=== PATIENT | male | born 1960 | race Caucasian/White ===

== ENCOUNTER → 2019-12-19 16:35 | Outpatient (CLI) | payer OTHER, SELFPAY ==
--- NOTE | ~2019-12-19 | XR_ITS ---
EXAMINATION: XR shoulder LT min 2V DATE: 12/19/2019 16:56 INDICATION: Left shoulder pain TECHNIQUE: AP internally and externally rotated, AP oblique externally rotated and axillary views of the left shoulder were obtained. COMPARISON: None FINDINGS: Normal alignment. No fracture. Glenohumeral joint is normal. Chondrocalcinosis and mild osteoarthrit is at the acromioclavicular joint. Subtle amorphous calcification along the greater tuberosity sugges tive of rotator cuff calcific tendinitis. Visualized portions of the lungs are clear. IMPRESSION: 1. Chondrocalcinosis and mild osteoarthritis at the left acromioclavicular joint. 2. Rotator cuff calcific tendinitis. Reviewed, dictated and finalized at location A. IMPRESSION: 1. Chondrocalcinosis and mild osteoarthritis at the left acromioclavicular join t. 2. Rotator cuff calcific tendinitis.
== END ==
PROVIDERS: PCP Family Medicine; Visit Provider Family Medicine
DX: M75.32 Calcific tendinitis of left shoulder (principal); M19.012 Primary osteoarthritis, left shoulder
CPT/HCPCS: 73030